=== PATIENT | male | born 1980 ===

== ENCOUNTER 2018-04-13 12:42 | Outpatient (CLI) | payer OTHER ==
[~2018-04-13] VITALS: Ht 152.4 cm; Wt 89.8 kg
== END 2018-04-13 13:00 | disposition home or self-care (01) ==
LOC: OFIC 805 12:42
DX: H69.83 Other specified disorders of Eustachian tube, bilateral (principal); M26.69 Other specified disorders of temporomandibular joint

== ENCOUNTER 2018-05-04 11:53 | Outpatient (CLI) | payer OTHER ==
[~2018-05-04] VITALS: Ht 152.4 cm; Wt 89.8 kg
== END 2018-05-04 12:10 | disposition home or self-care (01) ==
LOC: OFIC 805 11:53
DX: M26.69 Other specified disorders of temporomandibular joint (principal); M62.838 Other muscle spasm